=== PATIENT | male | born 1985 | race Caucasian/White ===

== ENCOUNTER 2024-08-10 22:57 | Emergency (ER) | payer SELFPAY ==
[~2024-08-10] VITALS: Ht 175.3 cm; Wt 88.6 kg
[2024-08-10 23:03] VITALS: O2SAT 99
[2024-08-10 23:06] VITALS: BP 143/87; PULSE 102; RESP 16; TEMP 36.8; O2SAT 99
== END 2024-08-11 | disposition left against medical advice (07) ==
LOC: ER 22:57
DX: R06.02 Shortness of breath (principal); Z53.21 Procedure and treatment not carried out due to patient leaving prior to being seen by health care provider